=== PATIENT | male | born 1985 | race Caucasian/White ===

== ENCOUNTER 2023-07-22 14:46 | Emergency (ER) | payer BC, SELFPAY ==
--- NOTE | ~2023-07-22 | XR_ITS ---
EXAMINATION: [id number] Exam Date/Time: 07/22/2023 15:23 CASH ANALYST HISTORY: fall, rt side mid rib pain Comparison: None available. RESULT: Lines, tubes, and devices: None. Lungs and pleura: Clear. Cardiothymic silhouette: Unremarkable. Other: No acute osseous or upper abdominal finding. IMPRESSION: No acute cardiopulmonary process. No acute osseous finding in the right ribs. Reviewed, dictated and finalized at location K. ANALYST
[2023-07-22 15:17] VITALS: BP 130/86; PULSE 64; RESP 16; TEMP 36.5; O2SAT 100
--- NOTE | 2023-07-22 15:49 | ED.FALL ---
HPI - Fall General Chief Complaint: Extremity Injury, Upper Stated Complaint: Fall Injury, Side Pain Time Seen by Provider: 07/22/23 15:20 Source: patient Mode of arrival: ambulatory Limitations: no limitations History of Present Illness HPI Narrative: Kenn is a 38-year-old male patient presenting to the clinic today with complaints of right rib pain after falling on the ice Monday. He reports pain just below the breast on the right side. Pain is worse with coughing, sneezing, and taking deep breaths. Related Data Allergies Allergy/AdvReac Type Severity Reaction Status Date / Time No Known Allergies Allergy Verified 07/22/23 15:27 Review of Systems Review of Systems: Pertinent positives per HPI. Patient denies any fever, chills, rash, headache, visual changes, dizziness, cough, shortness of breath, chest pain, palpitations, nausea, vomiting, diarrhea, constipation, abdominal pain, or any urinary issues. PMFSH Comments At the time of my signature, I reviewed and agree with the nursing past medical, surgical, social, and family history. There is no relevant family history pertinent to the patient complaint. Exam Narrative: General: Well-developed, well nourished, in no apparent distress Head: Normocephalic, atraumatic Eyes: Pupils equally round and reactive to light bilaterally, EOM intact, sclera and conjunctive clear, no discharge, lids normal Ears: TMs intact and clear, ear canals clear, no drainage, grossly hearing normal. Nose: Nares patent, no discharge, no inflammation, no sinus tenderness. Mouth: Oral pharynx without lesions or masses, good dentition, MMM. Neck: Supple, trachea midline, no enlargement of anterior or posterior cervical nodes, no thyroid masses or goiter palpable. Chest: Symmetric, no bruising or swelling noted, even rise and fall of chest wall with respirations, tender to palpation over the right anterior ribs just below the breast Cardio: Regular rate and rhythm, s1 and s2 normal, no murmur appreciated. Resp: Clear to auscultation bilaterally, no rhonchi, rales, wheezing or rubs Course Course Emergency Course: Portions of this record may have been created with voice recognition software. Level of Care: Express Care Visit Vital Signs Vital signs: Vital Signs Temperature 36.5 C 07/22/23 15:17 Pulse Rate 64 07/22/23 15:17 Respiratory Rate 16 07/22/23 15:17 Blood Pressure 130/86 07/22/23 15:17 Pulse Oximetry 100 07/22/23 15:17 Oxygen Delivery Room Air 07/22/23 15:17 Temperature 36.5 C 07/22/23 15:17 Pulse Rate 64 07/22/23 15:17 Respiratory Rate 16 07/22/23 15:17 Blood Pressure 130/86 07/22/23 15:17 Pulse Oximetry 100 07/22/23 15:17 Oxygen Delivery Room Air 07/22/23 15:17 Vital signs reviewed MDM - Fall MDM Narrative Medical decision making narrative: At the time of visit patient is resting comfortably on the exam table. Patient appears to be nontoxic. Diagnostics: X-ray of the right ribs is negative for any acute cardiopulmonary issue or rib fracture. Plan: I suspect patient has right rib contusion. Prescription for cyclobenzaprine and naproxen was sent to the pharmacy. Supportive measure were discussed with the patient and they voiced understanding discharge instructions and agrees to treatment plan. Return precautions reviewed Differential Diagnosis Differential diagnosis: Likely other (Rib fracture, rib contusion, chest wall contusion, muscle strain) Imaging Data Radiologist's impression: ITS Impressions Ribs w/Chest X-Ray 07/22/23 15:45 IMPRESSION: No acute cardiopulmonary process. No acute osseous finding in the right ribs. Discharge Plan Discharge Clinical Impression: Contusion of rib on right side Qualifiers: Encounter type: initial encounter Qualified Code(s): S20.211A - Contusion of right front wall of thorax, initial encounter Patient Disposition: Home, Self-Care
== END 2023-07-22 15:54 | disposition home or self-care (01) ==
PROVIDERS: Emergency Provider Nurse Practitioner Family
DX: S20.211A Contusion of right front wall of thorax, initial encounter (principal); W00.0XXA Fall on same level due to ice and snow, initial encounter
CPT/HCPCS: 71101; 99213; G0463

== ENCOUNTER 2024-07-02 12:55 | Emergency (ER) | payer OTHER, SELFPAY ==
[2024-07-02 13:00] VITALS: BP 141/88; PULSE 99; RESP 18; TEMP 36.8; O2SAT 98
--- NOTE | 2024-07-02 13:27 | ED.URI ---
HPI - URI/Sore Throat General Chief Complaint: Upper Respiratory Infection Stated Complaint: throat/ear Time Seen by Provider: 07/02/24 13:14 Source: patient, RN notes reviewed and old records reviewed Mode of arrival: ambulatory Limitations: no limitations History of Present Illness HPI Narrative: 39 year old male presents to [facility] care with complaints of right ear pain and sore throat for the past 3 days. Patient reports that it is painful to swallow and he feels like his throat is swollen. Patient reports that he has been doing salt water gargles and taking Ricola lozenges for his discomfort. Patient reports that he has not had a known fever, chills or sweats, denies any cough.. MD elicited complaint: sore throat and other (ear pain) Onset (ago): day(s) (3) Consistency: constant Pain scale (0-10): 9 Able to tolerate fluids by mouth: Yes Exacerbating factors: swallowing Treatments prior to arrival: other (salt water gargles and Ricola lozenzes) Related Data Allergies Allergy/AdvReac Type Severity Reaction Status Date / Time acetaminophen (From Percocet) AdvReac Intermediate Nausea and Verified 07/02/24 13:06 Vomiting oxycodone (From Percocet) AdvReac Intermediate Nausea and Verified 07/02/24 13:06 Vomiting Review of Systems Review of Systems: CONSTITUTIONAL:Reports malaise,no chills, sweats, or fever. EYES: Denies visual changes, redness, or discharge. ENT: Reports rhinorrhea, congestion, no sinus pain, right otalgia and positive for sore throat. CARDIOVASCULAR: Denies chest pain, palpitations, or edema. RESPIRATORY: Reports no cough.? Denies dyspnea. GASTROINTESTINAL: Denies abdominal pain, nausea, vomiting, diarrhea SKIN: Denies rash or itching. MUSCULOSKELETAL: Denies myalgia. NEUROLOGIC: Denies headache. All systems reviewed & are unremarkable except as noted in HPI and below PMFSH Past Medical History Medical History Hypertension Social History Social History Smoking status: Never smoker Alcohol intake: current Alcohol use details: social Substance use type: does not use Living arrangements: with family Gender identity (if verbalized by the patient): Male Comments At time of signature, agree with nursing past medical, surgical, social and family history. There is no relevant family history pertinent to the presenting complaint Exam Narrative: GENERAL: Well-appearing, well-nourished, and in no acute distress. HEAD: Normocephalic EYES: PERRLA, conjunctivae clear ENT: Nares clear, turbinates edematous and erythematous, clear discharge. Mucous membranes moist. TM pearly bullock with dull light reflex bilaterally; no tragal tenderness. Oropharynx erythematous without lesions. Tonsils red and very enlarged and without exudate, no drooling, no hoarseness, no trismus, uvula midline red and swollen painful swallowing, No Barrie angina. NECK: Supple. lymphadenopathy CHEST: Clear to auscultation, breath sounds equal. No wheezing, rhonchi, rales, or stridor. No respiratory distress, speaks in full sentences.no cough noted SAO2 98% on room air HEART: Regular rate and rhythm. No murmur heard. SKIN: Warm, dry, no rash. NEURO: Alert and oriented x3. PSYCH: Normal mood and affect Course Course Emergency Course: Patient is aware of diagnosis, understands and agrees to treatment plan.? Anticipatory guidance given.? Patient agrees to follow-up as directed and is aware of reasons to seek care at the emergency department. Portions of this record may have been created with voice recognition software Level of Care: Express Care Visit Vital Signs Vital signs: Vital Signs Temperature 36.8 C 07/02/24 13:00 Pulse Rate 99 07/02/24 13:00 Respiratory Rate 18 07/02/24 13:00 Blood Pressure 141/88 H 07/02/24 13:00 Pulse Oximetry 98 07/02/24 13:00 Oxygen Delivery Room Air 07/02/24 13:00 Temperature 36.8 C 07/02/24 13:00 Pulse Rate 99 07/02/24 13:00 Respiratory Rate 18 07/02/24 13:00 Blood Pressure 141/88 H 07/02/24 13:00 Pulse Oximetry 98 07/02/24 13:00 Oxygen Delivery Room Air 07/02/24 13:00 Reviewed MDM - URI/Sore Throat MDM Narrative Medical decision making narrative: Differential diagnosis considered: Chavarria virus, strep pharyngitis, allergic rhinitis, upper respiratory tract infection, sinusitis, rhinosinusitis, nasopharyngitis. viral pharyngitis, otitis media, otitis externa, pneumonia, bronchitis, viral cough syndrome, viral syndrome, and influenza.? Exam findings show no acute concerns or changes; patient is non-toxic appearing and is in no distress.? Patient is appropriate for outpatient treatment and follow-up. Differential Diagnosis Differential diagnosis: Likely upper respiratory infection, otitis media, viral infection, pharyngitis and other (strep pharyngitis, acute tonsillitis) Medical Records Attestation: I reviewed the patient's medical records. Lab Data Attestation: I reviewed the patient's lab results. Lab results narrative: strep screen negative, strep culture sent Labs: Lab Results 07/02/24 Range/Units 13:28 POC Grp A Strep Screen Negative (Negative) reviewed Critical Care Time Critical Care Time Critical Care Time: No Discharge Plan Discharge Clinical Impression: Acute tonsillitis Qualifiers: Pharyngitis/tonsillitis etiology: unspecified etiology Qualified Code(s): J03.90 - Acute tonsillitis, unspecified Patient Disposition: Home, Self-Care Condition: Stable Instructions: Antibiotic Form, Tonsillitis (ED) Additional Instructions: Tylenol or ibuprofen for any fever pain . Take the entire course of antibiotics. Throw away your current toothbrush and begin using a new toothbrush in 48 hours in order to prevent re-infection. Sanitize all reusable water bottles . Do not share items with others. Salt water gargles may alleviate some of the throat discomfort. You can take Tylenol or ibuprofen per the package instructions for pain/fever. Steroids as prescribed complete all doses If your symptoms persist, change or worsen significantly before you can contact your personal physician then please, without delay, go to the emergency department for further evaluation. Follow-up with PCP in 7-10 days or sooner if needed Follow up with PCP soon in regards to your blood pressure which is elevated above threshold for referral. Blood pressure above 120/80 may indicate pre-hypertension.141/88 Patient Language: Ma[place] Prescriptions: New penicillin V potassium 500 mg tablet 500 mg PO Q12H 10 Days Qty: 20 0RF prednisone 20 mg tablet 20 mg PO BID Qty: 10 0RF Follow-up/Referrals: PHYSICIAN,WIRELESS INTERNET INSTALLER [Primary Care Provider] - Time of Disposition: 13:38 Quality [place] Coma Scale Eyes: Open Verbal: Oriented and Alert Motor: Follows Commands Sky Coma Total Score: 15
[2024-07-02 13:30] LABS: EDSTREPNEGPOS1 Negative (Negative)
== END 2024-07-02 13:43 | disposition home or self-care (01) ==
PROVIDERS: Emergency Provider Registered Nurse
DX: J03.90 Acute tonsillitis, unspecified (principal); I10 Essential (primary) hypertension
CPT/HCPCS: 87081; 87880; 99213; G0463